=== PATIENT | female | born 2000 | race Caucasian/White ===

== ENCOUNTER 2020-04-21 16:45 | Emergency (ER) | payer OTHER ==
[~2020-04-21] VITALS: Ht 154.9 cm; Wt 72.6 kg
[2020-04-21 16:47] VITALS: BP 119/72
[2020-04-21] MEDS ORDERED: BIRTH CONTROL (16:52)
[2020-04-21] MEDS ORDERED: LIDOCAINE PAIN1 EACH TRANSDERM (18:33)
[2020-04-21] MEDS ORDERED: ULTRAM 50MG TAB50 MG PO (18:33)
== END 2020-04-21 18:45 | disposition home or self-care (01) ==
LOC: ER 16:45
DX: S30.0XXA Contusion of lower back and pelvis, initial encounter (principal); M54.6 Pain in thoracic spine; W10.8XXA Fall (on) (from) other stairs and steps, initial encounter; Y93.89 Activity, other specified; Y92.89 Other specified places as the place of occurrence of the external cause; Y99.8 Other external cause status